=== PATIENT | male | born 1985 | race Caucasian/White ===

== ENCOUNTER 2021-07-31 19:22 | Emergency (ER) | payer OTHER ==
[2021-07-31 19:47] VITALS: BP 119/71; PULSE 78; TEMP 99.3; BMI 26.6
[2021-07-31] MEDS ORDERED: ACETAMINOPHEN 500 MG TABLET (FP) PO ONE (21:17)
[2021-07-31] MEDS ORDERED: DEXAMETHASONE SOD PHOSPHATE 10 MG/1 ML VIAL IM ONE (21:17)
[2021-07-31] MEDS ORDERED: DEXAMETHASONE SOD PHOSPHATE 10 MG/1 ML VIAL ONE (21:21)
[2021-07-31] MEDS ORDERED: ACETAMINOPHEN 500 MG TABLET (FP) ONE (21:22)
[2021-07-31 21:24] LABS: THROAT:GRP A STREP NOT DETECTED (NOTDETECTED)
[2021-07-31 21:51] LABS: SARS COV-2 MOLECULAR Negative (Negative)
== END 2021-07-31 21:58 | disposition home or self-care (01) ==
LOC: JERFT 19:22 → JER 19:22 → JERFT 21:58
PROC: 3E0233Z Introduction of Anti-inflammatory into Muscle, Percutaneous Approach (ICD-10-PCS; principal; 2021-07-31)
DX: J02.9 Acute pharyngitis, unspecified (principal); R19.7 Diarrhea, unspecified; Z11.52 Encounter for screening for COVID-19
CPT/HCPCS: 87651; 99284-25; C9803; J1100; U0003; U0005